=== PATIENT | female | born 1975 | race Caucasian/White ===

== ENCOUNTER 2017-01-28 10:17 | Emergency (ER) | payer MEDICAID ==
[2017-01-28 10:46] VITALS: BP 106/76; PULSE 67; RESP 19; TEMP 97.9; O2SAT 98
[2017-01-28 13:40] LABS: BASO # 0.1 K/uL (0.0-0.2); BASO % 0.6 % (0.0-2.0); EOS # 0.2 K/uL (0.0-0.7); EOS % 2.4 % (0.0-4.0); HEMATOCRIT 36.4 % (34.0-47.0); LYMPH # 2.7 K/uL (1.0-4.3); LYMPH % 32.5 % (20.0-40.0); MEAN CELL VOLUME 93.7 fl (81.0-99.0); MEAN CORPUSCULAR HGB CONC 33.1 g/dL (33.0-37.0); MEAN PLATELET VOLUME 11.2 fl (7.2-11.7); MONO # 0.6 K/uL (0.0-0.8); NEUT # 4.9 K/uL (1.8-7.0); NEUT % 57.5 % (50.0-75.0); NRBC % 0.1 % (0.0-0.0); RED CELL DISTRIBUTION WIDTH 13.7 % (11.5-14.5); WHITE BLOOD COUNT 8.4 K/uL (4.8-10.8)
--- NOTE | 2017-01-28 14:33 | ED PDOC ---
HPI: Female Pain Time Seen by Provider: 01/28/17 12:30 Chief Complaint (Nursing): Female Genitourinary Chief Complaint (Provider): female genitourinary History Per: Patient History/Exam Limitations: no limitations Onset/Duration Of Symptoms: Days (x 3 months ) Current Symptoms Are (Timing): Intermittent Episodes Additional Complaint(s): Berenice Neff is a 41 year old female, with a previous medical history of fibroids, who presents to the ED with complaints of vaginal bleeding intermittently ongoing for the past 3 months. Pt reports associated symptoms of lower abdominal pain, constipation and back pain. Pt reports being diagnosed with fibroids 4 years ago and has been placed on control. Pt denies any nausea, vomiting, urinary symptoms, fever or chills. Pt denies any other complaints at this time. PMD: none provided Abnormal Vaginal Bleeding: Yes Past Medical History Reviewed: Historical Data, Nursing Documentation, Vital Signs Vital Signs: Last Vital Signs Temp 97.9 F 01/28/17 10:45 Pulse 67 01/28/17 10:45 Resp 19 01/28/17 10:45 BP 106/76 01/28/17 10:45 Pulse Ox 98 01/28/17 10:57 - Medical History PMH: Kidney Stones (age 7) Other PMH: fibroids - Surgical History Surgical History: - Family History Family History: States: Diabetes, Hypertension - Immunization History Hx Tetanus Toxoid Vaccination: No Hx Influenza Vaccination: No Hx Pneumococcal Vaccination: No - Home Medications Home Medications: Ambulatory Orders Medication Instructions Recorded Amoxicillin/Clavulanate [Augmentin 1 tab PO BID #14 tab 10/04/14 875 MG-125 MG] Naproxen [Naprosyn] 375 mg PO BID PRN #15 tab 10/04/14 oxyCODONE/Acetaminophen [Percocet 1 tab PO QID PRN #12 tab 10/04/14 5/325 mg Tab] - Allergies Allergies/Adverse Reactions: Allergies Allergy/AdvReac Type Severity Reaction Status Date / Time No Known Allergies Allergy Verified 01/28/17 10:57 Review of Systems ROS Statement: Except As Marked, All Systems Reviewed And Found Negative Constitutional: Negative for: Fever, Chills Gastrointestinal: Positive for: Abdominal Pain (lower abdominal pain ), Constipation. Negative for: Nausea, Vomiting, Diarrhea Genitourinary Female: Positive for: Vaginal Bleeding. Negative for: Dysuria, Frequency, Incontinence Physical Exam - Reviewed Nursing Documentation Reviewed: Yes Vital Signs Reviewed: Yes - Physical Exam Appears: Positive for: Well, Non-toxic, No Acute Distress Head Exam: Positive for: ATRAUMATIC, NORMAL INSPECTION, NORMOCEPHALIC Skin: Positive for: Normal Color, Warm, Dry Neck: Positive for: Normal, Painless ROM Cardiovascular/Chest: Positive for: Regular Rate, Rhythm Respiratory: Positive for: CNT, Normal Breath Sounds Gastrointestinal/Abdominal: Positive for: Normal Exam, Bowel Sounds, Soft. Negative for: Tenderness Pelvic Exam: Positive for: External Exam Normal, Tender Adnexa (left). Negative for: Blood (no vaginal bleeding) Back: Positive for: Normal Inspection Extremity: Positive for: Normal ROM Neurologic/Psych: Positive for: Alert, Oriented - Laboratory Results Result Diagrams: 01/28/17 12:56 - ECG O2 Sat by Pulse Oximetry: 98 (RA) Pulse Ox Interpretation: Normal Medical Decision Making Medical Decision Making: Initial Impression: fibroids and possible cyst Initial Plan: * US pelvis/transvaginal * labs * reevaluation * * US: fibroid. no evidence of ovarian torision * pt advised to take motrin for pain warm compress to area of pain and to f.u with obgyn for consult on fibroid care. * pt understands. given copy of US. Scribe Attestation: Documented by Geno Mello, acting as a scribe for Tracy Benedict PA-C. Provider Scribe Attestation: All medical record entries made by the Scribe were at my direction and personally dictated by me. I have reviewed the chart and agree that the record accurately reflects my personal performance of the history, physical exam, medical decision making, and the department course for this patient. I have also personally directed, reviewed, and agree with the discharge instructions and disposition. Disposition - Clinical Impression Clinical Impression: Fibroid - Patient ED Disposition Is Patient to be Admitted: No Counseled Patient/Family Regarding: Studies Performed, Diagnosis, Need For Followup - Disposition Referrals: FAMILY PROVIDER,NO [Primary Care Provider] - [facility] [Outside] [facility] [Outside] Disposition: Routine/Home Disposition Time: 16:02 Condition: IMPROVED Instructions: Uterine Fibroids (ED)
--- NOTE | 2017-01-28 15:40 | US ---
HISTORY: severe right lower pelvic pain COMPARISON: None available. TECHNIQUE: Real-time transabdominal pelvic ultrasound was performed. In addition a transvaginal pelvic ultrasound was necessary to better depict pelvic anatomy FINDINGS: Examination limited by habitus. UTERUS: Measures 11.8 x 7.4 x 5.9 cm. Anteverted. ENDOMETRIUM: Measures 4 mm in diameter. CERVIX: Multiple nabothian cysts. Probable posterior uterine fibroid measuring approximately 1.9 x 2.1 cm. RIGHT OVARY: Measures 3.0 x 2.1 x 1.6 cm. Blood flow is demonstrated. LEFT OVARY: Not visualized. FREE FLUID: No significant free fluid noted. OTHER FINDINGS: None. IMPRESSION: Limited study. 2.1 cm probable posterior uterine fibroid. Enlarged uterus. The left ovary is not visualized.
== END 2017-01-28 16:24 | disposition home or self-care (01) ==
LOC: H.ER 10:17
DX: R10.2 Pelvic and perineal pain (principal); D25.9 Leiomyoma of uterus, unspecified; N93.9 Abnormal uterine and vaginal bleeding, unspecified

== ENCOUNTER 2017-03-28 23:12 | Emergency (ER) | payer MEDICAID ==
[2017-03-28 23:23] VITALS: BP 129/79; PULSE 72; RESP 16; TEMP 98.5; O2SAT 100
[2017-03-29 01:41] LABS: ALB/GLOB RATIO 1.4 (1.0-2.1); ALKALINE PHOSPHATASE 67 U/L (38-126); ALT/SGPT 73 U/L (9-52); AST/SGOT 65 U/L (14-36); BILIRUBIN,TOTAL 0.5 mg/dl (0.2-1.3); BLOOD UREA NITROGEN 15 mg/dl (7-17); CALCIUM 8.9 mg/dL (8.4-10.2); CARBON DIOXIDE 24 mmol/L (22-30); CHLORIDE 103 mmol/L (98-107); GFR AFRICAN-AMERICAN > 60; GLUCOSE,RANDOM 95 mg/dL (65-105); POTASSIUM 4.4 MMOL/L (3.6-5.0); SODIUM 137 mmol/l (132-148); TOTAL PROTEIN 7.1 G/DL (6.3-8.2)
[2017-03-29 01:43] LABS: BASO # 0.1 K/uL (0.0-0.2); BASO % 0.8 % (0.0-2.0); EOS # 0.2 K/uL (0.0-0.7); EOS % 2.5 % (0.0-4.0); HEMATOCRIT 40.3 % (34.0-47.0); LYMPH # 2.5 K/uL (1.0-4.3); LYMPH % 30.9 % (20.0-40.0); MEAN CELL VOLUME 91.9 fl (81.0-99.0); MEAN CORPUSCULAR HEMOGLOBIN 30.4 pg (27.0-31.0); MEAN CORPUSCULAR HGB CONC 33.1 g/dL (33.0-37.0); MEAN PLATELET VOLUME 11.5 fl (7.2-11.7); MONO # 0.7 K/uL (0.0-0.8); MONO % 8.1 % (0.0-10.0); NEUT # 4.8 K/uL (1.8-7.0); NEUT % 57.7 % (50.0-75.0); NRBC % 0.1 % (0.0-0.0); RED CELL DISTRIBUTION WIDTH 12.8 % (11.5-14.5); WHITE BLOOD COUNT 8.2 K/uL (4.8-10.8)
--- NOTE | 2017-03-29 01:43 | ED PDOC ---
"HPI: Chest Pain Time Seen by Provider: 03/29/17 00:49 Chief Complaint (Nursing): Chest Pain Chief Complaint (Provider): Chest Pain History Per: Patient History/Exam Limitations: no limitations Onset/Duration Of Symptoms: Days (x4days) Current Symptoms Are (Timing): Still Present Additional History Per: Patient Additional Complaint(s): Berenice Neff is a 41 year old female with a past medical history of kidney stones and a surgical history of a who presets to the ED with a chief complaint of chest pain onset x4days. Patient states it worsened on the left with inspiration, and reports SOB at times. Patient also admits to Starting on oral contraception approximately 2 months ago for dysfunctional uterine bleeding Past Medical History Reviewed: Historical Data, Nursing Documentation, Vital Signs Vital Signs: Last Vital Signs Temp 98.5 F 03/28/17 23:21 Pulse 72 03/28/17 23:21 Resp 16 03/28/17 23:21 BP 129/79 03/28/17 23:21 Pulse Ox 100 03/29/17 04:28 - Medical History PMH: Kidney Stones (age 7) - Surgical History Surgical History: - Family History Family History: States: Diabetes, Hypertension - Immunization History Hx Tetanus Toxoid Vaccination: No Hx Influenza Vaccination: No Hx Pneumococcal Vaccination: No - Home Medications Home Medications: Ambulatory Orders Medication Instructions Recorded Amoxicillin/Clavulanate [Augmentin 1 tab PO BID #14 tab 10/04/14 875 MG-125 MG] Naproxen [Naprosyn] 375 mg PO BID PRN #15 tab 10/04/14 oxyCODONE/Acetaminophen [Percocet 1 tab PO QID PRN #12 tab 10/04/14 5/325 mg Tab] DiphenhydrAMINE [Benadryl] 50 mg PO Q6H PRN #20 cap 03/29/17 Famotidine [Pepcid] 20 mg PO DAILY #5 tab 03/29/17 Naproxen [Naprosyn] 500 mg PO Q12 #14 tab 03/29/17 predniSONE [predniSONE Tab] 20 mg PO DAILY #12 tab 03/29/17 - Allergies Allergies/Adverse Reactions: Allergies Allergy/AdvReac Type Severity Reaction Status Date / Time No Known Allergies Allergy Verified 03/28/17 23:21 Review of Systems ROS Statement: Except As Marked, All Systems Reviewed And Found Negative Respiratory: Positive for: Shortness of Breath Physical Exam - Reviewed Nursing Documentation Reviewed: Yes Vital Signs Reviewed: Yes - Physical Exam Appears: Positive for: Well, Non-toxic, Uncomfortable Head Exam: Positive for: ATRAUMATIC, NORMAL INSPECTION, NORMOCEPHALIC Skin: Positive for: Normal Color, Warm, Dry Eye Exam: Positive for: Normal appearance, EOMI, PERRL ENT: Positive for: Normal ENT Inspection Neck: Positive for: Normal, Painless ROM, Supple Cardiovascular/Chest: Positive for: Regular Rate, Rhythm. Negative for: Murmur , Tachycardia Respiratory: Positive for: Normal Breath Sounds. Negative for: Wheezing, Respiratory Distress Gastrointestinal/Abdominal: Positive for: Normal Exam, Soft. Negative for: Tenderness Pelvic Exam: Positive for: External Exam Normal Back: Positive for: Normal Inspection Rectal: Positive for: Deferred Extremity: Positive for: Normal ROM Lymphatic: Positive for: Deferred Neurologic/Psych: Positive for: Alert, Oriented - Laboratory Results Result Diagrams: 03/29/17 01:10 03/29/17 01:10 - ECG O2 Sat by Pulse Oximetry: 100 (RA) Pulse Ox Interpretation: Normal Medical Decision Making Medical Decision Makin: Initial Impression Initial Plan: * Angio chest * EKG * CMP * Troponin * Urine pregnanc * CBC * PTT * Prothrombin * Ketorolac 10mg IV * Heplock Insertion * Re-Eval EXAM: CT Angiography Chest With Intravenous Contrast CLINICAL HISTORY: 41 years (approx. age) old, female; Pain; Chest pain TECHNIQUE: Axial computed tomographic angiography images of the chest with intravenous contrast using pulmonary embolism protocol. This CT exam was performed using one or more of the following dose reduction techniques: automated exposure control, adjustment of the mA and/or kV according to patient size, and/or use of iterative reconstruction technique. MIP reconstructed images were created and reviewed. Coronal and sagittal reformatted images were created and reviewed. CONTRAST: 95 mL of administered intravenously. EXAM DATE/TIME: Exam ordered 03/29/2017 2:48 AM COMPARISON: No relevant prior studies available. FINDINGS: Pulmonary arteries: No pulmonary embolism is seen to the level of the lobar pulmonary arterial branches bilaterally. The heterogeneous or decreased density of some small segmental and subsegmental pulmonary arterial branches may reflect inadequate enhancement, or motion, flow, or partial voluming artifact rather than small peripheral pulmonary emboli. Aorta: There is no thoracic aortic aneurysm or dissection. Incidental note of anatomic variant joint origin of the left common carotid and brachiocephalic arteries. Some limitations to evaluation of patency of the vessels of the arch related to phase of contrast enhancement. Lungs: Unremarkable. No mass. No consolidation. Pleural space: Unremarkable. No significant effusion. No pneumothorax. Heart: There is physiologic pericardial fluid. No evidence of RV dysfunction. Mediastinum: Air in the esophagus in keeping with reflux. Small hiatus hernia. Thyroid: Thyroid with no focal lesions. Bones/joints: No acute fracture. No dislocation. Soft tissues: Unremarkable. Lymph nodes: No adenopathy identified. PEGGY, BERENICE | Final Radiology Report CONFIDENTIALITY STATEMENT This report is intended only for use by the referring physician, and only in accordance with law. If you received this in error, call [phone]. Page 2 of 2 IMPRESSION: Pulmonary arteries as above with no embolus within limits of the examination. Hiatus hernia and findings suggesting reflux, please correlate whether this could contribute to the reported symptoms. Limited evaluation of the gastric wall related to under distention. Thank you for allowing us to participate in the care of Patient has no clinical significant abnormalities. Patient is stabled for discharge. Patient report significant improvement in symptoms. Diagnosis: Chest Pain. Patient was prescribed Naprosyn and will follow up with PCP in 2 to 3 days. Scribe~Attestation: Documented by Krissy Cano acting as a~scribe~for Shorty Davis MD. ~ Provider~Scribe~Attestation: All medical record entries made by the~Vidalwere at my direction and personally dictated by me. I have reviewed the chart and agree that the record accurately reflects my personal performance of the history, physical exam, medical decision making, and the department course for this patient. I have also personally directed, reviewed, and agree with the discharge instructions and disposition. Disposition - Clinical Impression Clinical Impression: Pleuritic chest pain - Disposition Referrals: Niraj Yu MD [Primary Care Provider] - Disposition: Routine/Home Disposition Time: 04:00 Condition: STABLE Prescriptions: Naproxen [Naprosyn] 500 mg PO Q12 #14 tab Instructions: Pleurisy (ED)"
[2017-03-29 01:57] LABS: PARTIAL THROMBOPLASTIN TIME 24.4 SECONDS (23.3-32.5)
[2017-03-29] MEDS ORDERED: Sodium Chloride 0.9% 50 ML IV ONE (02:32)
[2017-03-29] MEDS ORDERED: Iodixanol 320 MG/ML 100 ML BOTTLE IV ONE (02:32)
--- NOTE | 2017-03-29 12:11 | CT ---
PROCEDURE: CT Chest with contrast (Pulmonary Angiogram) HISTORY: chest pain r/o PE COMPARISON: No prior study available comparison. TECHNIQUE: Axial computed tomography images were obtained of the chest in the pulmonary arterial phase of enhancement following injection of approximately 95 cc Visipaque 320 contrast material employing CTA protocol. . Coronal and sagittal reformatted images were created and reviewed. Radiation dose: Total exam DLP = 365.6 mGy-cm. This CT exam was performed using one or more of the following dose reduction techniques: Automated exposure control, adjustment of the mA and/or kV according to patient size, and/or use of iterative reconstruction technique. FINDINGS: PULMONARY ARTERIES: Visualized portions of the pulmonary trunk, right and left main as well as lobar most of the proximal segmental branches of the pulmonary arteries appear relatively well opacified however some heterogeneous enhancement and/or poor enhancement within distal segmental and subsegmental branches on may be secondary to poor opacification motion and volume averaging artifact. Possibility of small distal branch pulmonary emboli cannot be completely excluded. Pulmonary trunk measures approximately 2.7 cm. AORTA: Ascending thoracic aorta measures approximately 3.5 cm and descending thoracic aorta measures approximately 2.4 cm. Heart size within range of normal. Small amount of pericardial fluid likely physiologic. Common origin right brachiocephalic and left common carotid artery. LUNGS: Unremarkable. No nodule, mass or pulmonary consolidation. . No significant mediastinal or hilar adenopathy. Tiny bleb seen right anterior upper lung field PLEURAL SPACES: Unremarkable. No effusion or pneuomothorax. HEART: Heart size is within range of normal. LYMPH NODES: No lymphadenopathy. BONES, CHEST WALL: Mild multilevel degenerative spondylosis of the thoracic spine. OTHER FINDINGS: Tiny hiatal hernia. IMPRESSION: No evidence central pulmonary embolus within limitations of the study as detailed above.
[2017-03-29] MEDS ORDERED: DiphenhydrAMINE 50 mg/ml Inj ONE (15:52)
--- NOTE | 2017-03-29 22:43 | CARD ---
APPROVED REPORT EKG Measurement Heart [id number] <Conclusion> Normal sinus rhythm Low voltage QRS Borderline ECG
== END 2017-03-29 05:56 | disposition home or self-care (01) ==
LOC: H.ER 23:12
DX: R07.81 Pleurodynia (principal); R06.02 Shortness of breath; K44.9 Diaphragmatic hernia without obstruction or gangrene
CPT/HCPCS: 71275; 80053; 81025; 84484; 85025; 85610; 85730; 93005; 96374; 96375; 99283; J1885; J2270; J2405; Q9967

== ENCOUNTER 2017-03-29 14:11 | Emergency (ER) | payer MEDICAID, OTHER ==
[2017-03-29 14:15] VITALS: BP 114/74; PULSE 77; RESP 20; TEMP 98.2; O2SAT 95
[2017-03-29] MEDS ORDERED: DiphenhydrAMINE 50 mg/ml Inj IVP STA (15:44)
[2017-03-29 16:18] LABS: HEMATOCRIT 40.8 % (34.0-47.0); MEAN CELL VOLUME 91.8 fl (81.0-99.0); MEAN CORPUSCULAR HEMOGLOBIN 30.4 pg (27.0-31.0); MEAN CORPUSCULAR HGB CONC 33.2 g/dL (33.0-37.0); RED CELL DISTRIBUTION WIDTH 12.6 % (11.5-14.5); WHITE BLOOD COUNT 8.4 K/uL (4.8-10.8)
[2017-03-29 16:37] LABS: ALB/GLOB RATIO 1.3 (1.0-2.1); ALKALINE PHOSPHATASE 43 U/L (38-126); ALT/SGPT 58 U/L (9-52); AST/SGOT 54 U/L (14-36); BLOOD UREA NITROGEN 12 mg/dl (7-17); CALCIUM 8.5 mg/dL (8.4-10.2); CARBON DIOXIDE 21 mmol/L (22-30); CHLORIDE 105 mmol/L (98-107); GFR AFRICAN-AMERICAN > 60; GLUCOSE,RANDOM 126 mg/dL (65-105); POTASSIUM 4.5 MMOL/L (3.6-5.0); SODIUM 136 mmol/l (132-148)
--- NOTE | 2017-03-29 16:54 | ED PDOC ---
HPI: Allergic Reaction Time Seen by Provider: 03/29/17 14:51 Chief Complaint (Nursing): Allergic Reaction Chief Complaint (Provider): Rash - Itch Additional Complaint(s): Pt states last night she was given toradol, zofran and morphine last night for pain. PT states shortly after being home she fell asleep. Pt states when she woke up she had a red rash that was itchy with swollen eyes. No similar in the past. Denies SOB. Past Medical History Reviewed: Historical Data, Nursing Documentation, Vital Signs Vital Signs: Last Vital Signs Temp 98.2 F 03/29/17 14:12 Pulse 77 03/29/17 14:12 Resp 20 03/29/17 14:12 BP 114/74 03/29/17 14:12 Pulse Ox 95 03/29/17 14:12 - Medical History PMH: Kidney Stones (age 7) - Surgical History Surgical History: - Family History Family History: States: Diabetes, Hypertension - Living Arrangements Living Arrangements: With Family - Social History Current smoker - smoking cessation education provided: No Alcohol: None Drugs: Denies - Immunization History Hx Tetanus Toxoid Vaccination: No Hx Influenza Vaccination: No Hx Pneumococcal Vaccination: No - Home Medications Home Medications: Ambulatory Orders Medication Instructions Recorded Amoxicillin/Clavulanate [Augmentin 1 tab PO BID #14 tab 10/04/14 875 MG-125 MG] Naproxen [Naprosyn] 375 mg PO BID PRN #15 tab 10/04/14 oxyCODONE/Acetaminophen [Percocet 1 tab PO QID PRN #12 tab 10/04/14 5/325 mg Tab] DiphenhydrAMINE [Benadryl] 50 mg PO Q6H PRN #20 cap 03/29/17 Famotidine [Pepcid] 20 mg PO DAILY #5 tab 03/29/17 Naproxen [Naprosyn] 500 mg PO Q12 #14 tab 03/29/17 predniSONE [predniSONE Tab] 20 mg PO DAILY #12 tab 03/29/17 - Allergies Allergies/Adverse Reactions: Allergies Allergy/AdvReac Type Severity Reaction Status Date / Time No Known Allergies Allergy Verified 03/28/17 23:21 Review of Systems ROS Statement: Except As Marked, All Systems Reviewed And Found Negative Skin: Positive for: Rash Physical Exam - Reviewed Nursing Documentation Reviewed: Yes Vital Signs Reviewed: Yes - Physical Exam Appears: Positive for: Well, Non-toxic, No Acute Distress Head Exam: Positive for: ATRAUMATIC, NORMAL INSPECTION, NORMOCEPHALIC Skin: Positive for: Warm, Rash (Erythematous, various sizes and shapes, on the trunk, face and extremities ). Negative for: Normal Color Eye Exam: Positive for: Normal appearance ENT: Positive for: Normal ENT Inspection Neck: Positive for: Normal, Painless ROM Cardiovascular/Chest: Positive for: Regular Rate, Rhythm Respiratory: Positive for: CNT, Normal Breath Sounds Gastrointestinal/Abdominal: Positive for: Normal Exam, Bowel Sounds, Soft Back: Positive for: Normal Inspection Extremity: Positive for: Normal ROM Neurologic/Psych: Positive for: Alert, Oriented - Laboratory Results Result Diagrams: 03/29/17 16:10 03/29/17 16:10 - ECG O2 Sat by Pulse Oximetry: 95 - Progress Re-evaluation Time: 16:44 Condition: Improved Disposition - Clinical Impression Clinical Impression: Allergic reaction - Patient ED Disposition Is Patient to be Admitted: No Counseled Patient/Family Regarding: Diagnosis, Need For Followup, Rx Given - Disposition Referrals: [facility] [Outside] Disposition: Routine/Home Disposition Time: 16:54 Condition: GOOD Prescriptions: DiphenhydrAMINE [Benadryl] 50 mg PO Q6H PRN #20 cap PRN Reason: Itching / Pruritus Famotidine [Pepcid] 20 mg PO DAILY #5 tab predniSONE [predniSONE Tab] 20 mg PO DAILY #12 tab Instructions: Urticaria (ED)
--- NOTE | 2017-04-05 07:21 | CARD ---
APPROVED REPORT EKG Measurement Heart [id number] <Conclusion> Normal sinus rhythm Normal ECG
== END 2017-03-29 17:30 | disposition home or self-care (01) ==
LOC: H.ER 14:11
DX: T78.40XA Allergy, unspecified, initial encounter (principal)

== ENCOUNTER 2017-10-10 13:50 | Emergency (ER) | payer OTHER ==
[2017-10-10 13:59] VITALS: BP 116/46; PULSE 99; RESP 18; TEMP 99.4; O2SAT 98
--- NOTE | 2017-10-10 15:27 | ED PDOC ---
HPI: General Adult Time Seen by Provider: 10/10/17 14:10 Chief Complaint (Nursing): GI Problem History Per: Patient Additional Complaint(s): Pt. states last night she developed diffuse crampy abdominal pain associated with multiple episodes of non-bloody vomiting and non-bloody watery diarrhea. Reports her son and daughter also have same symptoms which began yesterday. Denies melena, hematochezia, BRBPR, hematemesis, fever, recent travel, previous abdominal surgery. Past Medical History Reviewed: Historical Data, Nursing Documentation, Vital Signs Vital Signs: Last Vital Signs Temp 99.4 F 10/10/17 13:56 Pulse 99 H 10/10/17 13:56 Resp 18 10/10/17 13:56 BP 116/46 L 10/10/17 13:56 Pulse Ox 98 10/10/17 15:31 - Medical History PMH: Kidney Stones (age 7) - Surgical History Surgical History: - Family History Family History: States: Diabetes, Hypertension - Immunization History Hx Tetanus Toxoid Vaccination: No Hx Influenza Vaccination: No Hx Pneumococcal Vaccination: No - Home Medications Home Medications: Ambulatory Orders Medication Instructions Recorded Amoxicillin/Clavulanate [Augmentin 1 tab PO BID #14 tab 10/04/14 875 MG-125 MG] Naproxen [Naprosyn] 375 mg PO BID PRN #15 tab 10/04/14 oxyCODONE/Acetaminophen [Percocet 1 tab PO QID PRN #12 tab 10/04/14 5/325 mg Tab] DiphenhydrAMINE [Benadryl] 50 mg PO Q6H PRN #20 cap 03/29/17 Famotidine [Pepcid] 20 mg PO DAILY #5 tab 03/29/17 Naproxen [Naprosyn] 500 mg PO Q12 #14 tab 03/29/17 predniSONE [predniSONE Tab] 20 mg PO DAILY #12 tab 03/29/17 Dicyclomine [Bentyl] 20 mg PO Q8 PRN #15 tab 10/10/17 Ondansetron ODT [Zofran ODT] 4 mg PO TID #21 odt 10/10/17 - Allergies Allergies/Adverse Reactions: Allergies Allergy/AdvReac Type Severity Reaction Status Date / Time No Known Allergies Allergy Verified 03/28/17 23:21 Review of Systems ROS Statement: Except As Marked, All Systems Reviewed And Found Negative Gastrointestinal: Positive for: Nausea, Vomiting, Abdominal Pain, Diarrhea Physical Exam - Physical Exam Appears: Positive for: Well, Non-toxic, No Acute Distress Skin: Positive for: Normal Color, Warm. Negative for: Rash Eye Exam: Positive for: Normal appearance ENT: Positive for: Normal ENT Inspection Gastrointestinal/Abdominal: Positive for: Normal Exam, Bowel Sounds, Soft. Negative for: Tenderness Back: Positive for: Normal Inspection. Negative for: L CVA Tenderness, R CVA Tenderness Neurologic/Psych: Positive for: Alert, Oriented - ECG O2 Sat by Pulse Oximetry: 98 - Progress ED Course And Treament: Bentyl PO, zofran 4mg PO ordered. Re-evaluation Time: 17:05 Condition: Re-examined, Improved Disposition - Clinical Impression Clinical Impression: Gastroenteritis - Patient ED Disposition Is Patient to be Admitted: No - Disposition Referrals: [facility] [Outside] Disposition: Routine/Home Disposition Time: 17:05 Condition: IMPROVED Prescriptions: Dicyclomine [Bentyl] 20 mg PO Q8 PRN #15 tab PRN Reason: abdominal pain Ondansetron ODT [Zofran ODT] 4 mg PO TID #21 odt Instructions: Gastroenteritis (ED) Forms: [email or web address] [place] ([place]), [facility] ED School/Work Excuse
== END 2017-10-10 18:04 | disposition home or self-care (01) ==
LOC: H.ER 13:50
DX: K52.9 Noninfective gastroenteritis and colitis, unspecified (principal); Z87.442 Personal history of urinary calculi